=== PATIENT | female | born 1970 | race Caucasian/White ===

== ENCOUNTER 2019-11-20 19:29 | Inpatient (IN) | payer OTHER ==
[~2019-11-20] VITALS: Ht 170.2 cm; Wt 74.6 kg
--- NOTE | ~2019-11-20 | OR ---
[facility] [place] [facility] [address], [place] [address] Draft DATE OF OPERATION: SURGEON: Mk Vargas MD PREOPERATIVE DIAGNOSIS: Acute appendicitis. POSTOPERATIVE DIAGNOSIS: Acute perforated appendicitis. PROCEDURE: Laparoscopic appendectomy. ANESTHESIA: General endotracheal; Luis Armando Isabel CRNA and local 10 mL of 0.25% Marcaine with epinephrine. INDICATION: This 49-year-old white woman was seen late in the emergency room last night with several days of increased abdominal pain. She is noted to have an elevated white count. She had very vague complaints of pain in the right lower abdomen and right mid abdomen. Clinical examination was equivocal, Rovsing sign was negative. She had tenderness, but well above the McBurney's point. She was also noted to have electrolyte disturbance with a potassium of 2.9. A CT scan was performed under the direction and Dr. Hughes, the Emergency Room physician, which showed some suspicion of appendicitis and possible fecalith retention in the appendix. There was dilation and edema as well. She was fluid resuscitated, given broad-spectrum antibiotic meropenem and electrolytes have been corrected. Unfortunately, the patient refused to undergo COVID-19 testing preoperative or intraoperative. She was quite adamant about this and has vague reasons for it. On that basis, she is considered putatively positive for COVID-19 and is managed in a similar way as regards PPE and so on. She was admitted to undergo probable appendectomy, possible open procedure, and other indicated procedures as necessary. The risks of bleeding, infection, need for open procedure, failure of diagnosis, missed diagnosis, and other unforeseen complications was reviewed in detail with her. She understands and wished to proceed. FINDINGS: Indeed she did have appendicitis. The appendix was densely matted against the cecum and sidewall of the abdominal area and some small bowel loops and a fibrinous peel was PATIENT NAME: KECIA RO OPERATIVE REPORT DATE OF : 70 REPORT #: [id number] PHYSICIAN: MK VARGAS MD PCP: NO PRIMARY CARE PHYSICIAN REPORT IS CONFIDENTIAL AND NOT TO BE RELEASED WITHOUT AUTHORIZATION [facility] [place] [facility] [address], [place] [address] Draft noted. There was perforation and a gangrenous tip of the appendix, but no well-formed abscess. Complete appendectomy has been performed without problem. The liver and gallbladder appeared normal. Small bowel loops other than local inflammation were also normal as was the right colon. DESCRIPTION OF PROCEDURE: The patient was brought to the operating room, given a general endotracheal anesthetic. Preoperative antibiotic meropenem had been given. Sequential compression device stockings were used and heparin subcutaneously administered. The abdomen was prepared with a chlorhexidine solution and draped sterilely. An infraumbilical incision was made and using an open Cliff cannula technique, pneumoperitoneum was achieved to level of 14 mmHg of carbon dioxide gas. Intraabdominal inspection showed marked inflammatory change in the right lower abdomen including small bowel loops. There was no sign of free purulence. The liver and gallbladder appeared normal. An epigastric 12 mm port was placed and a camera placed to that site. Single hand manipulation of the cecum was undertaken showing the area of the inflamed appendix. The base of the appendix was well demonstrated, the tip not so much at that time. The right lower quadrant 5 mm port was then placed. Using two-hand dissection, the appendix was then freed from the fibrinous peel adjacent to the cecum and small bowel loops were revealing the entirety of the appendix, which was markedly inflamed and with a gangrenous perforated tip. The appendix was elevated and a window created between the appendix and the cecum using blunt electrocautery dissection. An Endo-HILARIO stapling device with a vascular load was used to transect the base of the appendix, flushed with the cecum. The camera was placed to the umbilical area and the Endo-HILARIO staple device passed through the epigastric port for better alignment with the mesentery of the appendix. A single load was used to transect the appendiceal mesentery. Good hemostasis was noted. The appendix was placed in an endobag and extracted through the infraumbilical port site, related photograph demonstrating the perforated appendix at the tip. Irrigation was undertaken in the right lower quadrant and the pelvis. Copious irrigation was undertaken until clear. There was no formed abscess, only a small amount of fibrinous peel. Once complete irrigation was undertaken, the trocars were removed under direct visualization showing no sign of bleeding. The infraumbilical fascial incision was reapproximated with interrupted 0 Vicryl suture and a running PDS suture, which was size 0 also. Irrigation was undertaken in the subcutaneous tissue of each trocar site. A 10 mL of 0.25% Marcaine with epinephrine injected locally. The skin was then closed with interrupted 3-0 Vicryl. Steri-Strips were applied. The patient is anticipated to be extubated in the operating room and a mandatory wait time for possibility of COVID virus undertaken (14 minutes on average). Sponge, needle, and counts were reported as correct x3. PATIENT NAME: KECIA RO OPERATIVE REPORT DATE OF : 70 REPORT #: [id number] PHYSICIAN: MK VARGAS MD PCP: NO PRIMARY CARE PHYSICIAN REPORT IS CONFIDENTIAL AND NOT TO BE RELEASED WITHOUT AUTHORIZATION [facility] [place] [facility] [address] [place], [place] [address] Draft MD CORTNEY Steen/KEEGAN /[id number] cc: Ponce Hughes MD Copies: PONCE HUGHES MD ~ PATIENT NAME: KECIA RO OPERATIVE REPORT DATE OF : 70 REPORT #: [id number] PHYSICIAN: MK VARGAS MD PCP: NO PRIMARY CARE PHYSICIAN REPORT IS CONFIDENTIAL AND NOT TO BE RELEASED WITHOUT AUTHORIZATION
--- OUTSIDE RECORDS SUMMARY | ~2019-11-20 | XMS | Encounter Summary ---
Demographics + + + | Address | [address] | | | [place] [address] | + + + | Home Phone | | + + + | Preferred Language | Unknown | + + + | Marital Status | Single | + + + | Holiness Affiliation | Unknown | + + + | Race | Unknown | + + + | Ethnic Group | Unknown | + + + Author + + + | Author | [facility] | | | and [place] | + + + | Organization | [facility] | | | and [place] | + + + | Address | Unknown | + + + | Phone | Unavailable | + + + Support + + +---------+ + | Name | Relationship | Address | Phone | + + +---------+ + | Alejandra Trotter | ECON | Unknown | | + + +---------+ + Care Team Providers + +------+ + | Care Train Examiner Name | Role | Phone | + +------+ + PCP | Unavailable | + +------+ + Encounter Details +--------+ + + + + | Date | Type | Department | Care Team | Description | +--------+ + + + + | 10/16/ | Hospital | [facility] | | | | 1992 | Encounter | MED CTR EMERGENCY | | | | | | [address] [address] | | | | | | [place] | | | | | | [address] | | | | | | [phone] | | | +--------+ + + + + Social History + +-------+ +--------+------+ | Tobacco Use | Types | Packs/Day | Years | Date | | | | | Used | | + +-------+ +--------+------+ | Never Assessed | | | | | + +-------+ +--------+------+ + + + | Sex Assigned at | Date Recorded | | | | + + + | Not on file | | + + + documented as of this encounter Plan of Treatment Not on filedocumented as of this encounter Visit Diagnoses Not on filedocumented in this encounter"
--- OUTSIDE RECORDS SUMMARY | ~2019-11-20 | XMS | Encounter Summary ---
Demographics + + + | Address | [address] | | | [place] [address] | + + + | Home Phone | | + + + | Preferred Language | Unknown | + + + | Marital Status | Single | + + + | Latter Day Affiliation | Unknown | + + + | Race | Unknown | + + + | Ethnic Group | Unknown | + + + Author + + + | Author | [facility] | | | and [place] | + + + | Organization | [facility] | | | and [...] Team Providers + +------+ + | Care Top Cutter Name | Role | Phone | + +------+ + PCP | Unavailable | + +------+ + Encounter Details +--------+ + + + + | Date | Type | Department | Care Team | Description | +--------+ + + + + | 06/25/ | Hospital | [facility] | | | | 2011 | Encounter | MED CTR XRAY [address] | | | | | [address] | | | | | | [place] [address] | | | | | | [phone] | | | +--------+ + + + [...] Not on filedocumented as of this encounter Procedures + +--------+ + + + | Procedure Name | Priori | Date/Time | Associated Diagnosis | Comments | | | ty | | | | + +--------+ + + + | CT CHEST W CONTRAST | | 06/25/2011 | | Results for this | | | | 2:26 PM | | procedure are in the | | | | PST | | results section. | + +--------+ + + + documented in this encounter Results CT Chest w Contrast (06/25/2011 2:26 PM PST) + + | Specimen | + + | | + + + + + | Narrative | Performed At | + + + | [facility] | [place] | | [address] [address] [facility] [place] | [place]SS[place] | | CT CHEST WITH CONTRAST: | DIAG IMG | | 06/25/2011 CLINICAL HISTORY: LUNG MASS SEEN ON CHEST X-RAY. | | | COMPARISON: 06/20/2011 TECHNIQUE: Imaging is performed | | | through the chest following the uneventful intravenous | | | administration of 75 mL of Isovue 370. FINDINGS: The | | | abnormality on the chest radiograph corresponds to a prominent right | | | sided pericardial fat pad with a small amount of overlying | | | atelectatic lung. The lung parenchyma itself is otherwise clear. | | | No consolidation. No distinct nodules. No pleural effusions. | | | No pneumothorax. There is no mediastinal or hilar | | | lymphadenopathy. No pericardial thickening. Heart and great | | | vessels are unremarkable. There is an anatomic variant of a four | | | vessel arch, with the left vertebral artery originating from the | | | aortic arch. A large dystrophic-like calcification is present in | | | the right breast. Limited imaging of the upper abdomen is | | | unremarkable. Schmorl's nodes are present at multiple levels in | | | the lower thoracic vertebral body. There are no compression | | | deformities. IMPRESSION: RADIOGRAPHIC ABNORMALITY CORRESPONDS | | | TO A LARGE PERICARDIAL FAT PAD WITH OVERLYING ATELECTASIS. | | | Dictated Date/Time: 06/25/2011 15:54 Transcribed Date/Time: | | | 06/25/2011 16:02 Pure Pak Machine Operator: CALISTA <Electronically Signed | | | by Riki Thomas MD> 06/25/11 1651 | | + + + + + | Procedure Note | + + | João, Rad Conversion - 06/17/2013 4:45 PM [facility] | | Diagnostic Imaging Department | | [address] [facility] | | | | | | | | CT CHEST WITH CONTRAST: 06/25/2011 | | | | CLINICAL HISTORY: LUNG MASS SEEN ON CHEST X-RAY. | | | | COMPARISON: 06/20/2011 | | | | TECHNIQUE: Imaging is performed through the chest following the uneventful | | intravenous administration of 75 mL of Isovue 370. | | | | FINDINGS: The abnormality on the chest radiograph corresponds to a prominent | | right sided pericardial fat pad with a small amount of overlying atelectatic | | lung. The lung parenchyma itself is otherwise clear. No consolidation. No | | distinct nodules. No pleural effusions. No pneumothorax. There is no | | mediastinal or hilar lymphadenopathy. No pericardial thickening. Heart and | | great vessels are unremarkable. There is an anatomic variant of a four vessel | | arch, with the left vertebral artery originating from the aortic arch. A large | | dystrophic-like calcification is present in the right breast. | | Limited imaging of the upper abdomen is unremarkable. | | | | Schmorl's nodes are present at multiple levels in the lower thoracic vertebral | | body. There are no compression deformities. | | | | IMPRESSION: RADIOGRAPHIC ABNORMALITY CORRESPONDS TO A LARGE PERICARDIAL FAT | | PAD WITH OVERLYING ATELECTASIS. | | | | Dictated Date/Time: 06/25/2011 15:54 | | Transcribed Date/Time: 06/25/2011 16:02 | | Pure Pak Machine Operator: | | <Electronically Signed by Riki Thomas MD> 06/25/11 1651 | + + + +---------+ + + | Performing | Address | City/State/Zipcode | Phone Number | | Organization | | | | + +---------+ + + | [place] | | | | | [place] | | | | + +---------+ + + documented in this encounter Visit Diagnoses Not on filedocumented in this encounter"
--- OUTSIDE RECORDS SUMMARY | ~2019-11-20 | XMS | Clinical Summary ---
Demographics + + + | Address | [address] | | | [place] [address] | + + + | Home Phone | | + + + | Preferred Language | Unknown | + + + | Marital Status | Single | + + + | Episcopal Affiliation | Unknown | + + + | Race | Unknown | + + + | Ethnic Group | Unknown | + + + Author + + + | Author | [facility] | | | and [place] | + + + | Organization | [facility] | | | [...] Team Providers + +------+ + | Care Patrol Sergeant Name | Role | Phone | + +------+ + | No, Physician | PCP | Unavailable | + +------+ + Allergies No Known Allergies Medications + + + +---------+------+------+-------+ | Medication | Sig | Dispensed | Refills | Star | End | Statu | | | | | | t | Date | s | | | | | | Date | | | + + + +---------+------+------+-------+ | nicotine | apply 1 patch daily | | 0 | 02/2 | | Activ | | (NICODERM) 21 mg/24 | for the next 5 weeks | | | 3/20 | | e | | hr | | | | 12 | | | + + + +---------+------+------+-------+ | nicotine | after completing the | | 0 | 02/2 | | Activ | | (NICODERM) 14 mg/24 | 21mg patch, apply | | | 3/20 | | e | | hr | 14mg patch daily for | | | 12 | | | | | 2 weeks | | | | | | + + + +---------+------+------+-------+ | nicotine | after completing | | 0 | 02/2 | | Activ | | (NICODERM) 7 mg/24 | 14mg patch, apply | | | 3/20 | | e | | hr | the 7mg patch daily | | | 12 | | | | | for 2 weeks | | | | | | + + + +---------+------+------+-------+ | naproxen sodium | Take 1 tablet by | 30 | 1 | 05/1 | | Activ | | (ANAPROX) 550 MG | mouth Twice daily | tablet | | 9/20 | | e | | tablet | as needed. | | | 14 | | | + + + +---------+------+------+-------+ Active Problems + + + | Problem | Noted Date | + + + | CHEST PAIN, ATYPICAL | 07/03/2011 | + + + | FATIGUE | 07/03/2011 | + + + | NICOTINE ADDICTION | 07/03/2011 | + + + Social History + +-------+ +--------+------+ | Tobacco Use | Types | Packs/Day | Years | Date | | | | | Used | | + +-------+ +--------+------+ | Current Every Day | | | | | | Smoker | | | | | + +-------+ +--------+------+ + +---+---+---+ | Smokeless Tobacco: | | | | | Never Used | | | | + +---+---+---+ + + +---------+ + | Alcohol Use | Drinks/Week | oz/Week | Comments | + + +---------+ + | Not Asked | | | | + + +---------+ + + + + | Sex Assigned at | Date Recorded | | | | + + + | Not on file | | + + + Last Filed Vital Signs + + + + + | Vital Sign | Reading | Time Taken | Comments | + + + + + | Blood Pressure | 104/68 | 06/14/2015 6:57 PM | | | | | PST | | + + + + + | Pulse | 80 | 06/14/2015 6:57 PM | | | | | PST | | + + + + + | Temperature | 37.8 C (100.1 F) | 06/14/2015 6:57 PM | | | | | PST | | + + + + + | Respiratory Rate | 16 | 06/14/2015 6:57 PM | | | | | PST | | + + + + + | Oxygen Saturation | 95% | 06/14/2015 6:57 PM | | | | | PST | | + + + + + | Inhaled Oxygen | - | - | | | Concentration | | | | + + + + + | Weight | 65.8 kg (145 lb 1.6 | 06/14/2015 6:57 PM | | | | oz) | PST | | + + + + + | Height | 162.6 cm (5' 4") | 06/14/2015 6:57 PM | | | | | PST | | + + + + + | Body Mass Index | 24.91 | 06/14/2015 6:57 PM | | | | | PST | | + + + + + Plan of Treatment + + + + + | Health Maintenance | Due Date | Last | Comments | | | | Done | | + + + + + | Vaccine: | | | | | Dtap/Tdap/Td (1 - | 0 | | | | Tdap) | | | | + + + + + | Cervical Cancer | | 06/11/19 | | | Screening (Pap) | 5 | 10 | | + + + + + | Breast Cancer | | 07/18/19 | | | Screening | 6 | 12, | | | | | 07/18/19 | | | | | 12 | | + + + + + | Vaccine: Influenza | | | | | (#1) | 0 | | | + + + + + Results Not on filefrom Last 3 Months Insurance + +--------+ +--------+ +---------+------+ | Payer | Benefi | Subscriber | Effect | Phone | Address | Type | | | t Plan | ID | alejandra | | | | | | / | | Dates | | | | | | Group | | | | | | + +--------+ +--------+ +---------+------+ | [facility] PHP | [id number] | 05/11/19 | [phone] | | PPO | | PLAN | PROV | | 16-Pre | 5 | | | | | EMPLOY | | [place] | | | | [place] | | | | | | + +--------+ +--------+ +---------+------+ + +--------+ +--------+ + + | Guarantor Name | Accoun | Relation to | Date | Phone | Billing Address | | | t Type | Patient | of | | | | | | | | | | + +--------+ +--------+ + + | Tabitha Jarrell | Person | Self [birth year] | [address] | | | al/Fam | | 1971 | [phone] | [place] | | | [place] | | | 5 (Home) | [id number] | | | | | | [phone] | | | | | | | 0 (Work) | | + +--------+ +--------+ + + | Tabitha Jarrell | 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
--- OUTSIDE RECORDS SUMMARY | ~2019-11-20 | XMS | Encounter Summary ---
Demographics + + + | Address | [address] | | | [place] [address] | + + + | Home Phone | | + + + | Preferred Language | Unknown | + + + | Marital Status | Single | + + + | Taoist Affiliation | Unknown | + + + | Race | Unknown | + + + | Ethnic Group | Unknown | + + + Author + + + | Author | [facility] | | | and [place] | + + + | Organization | [facility] | | | and [...] Team Providers + +------+ + | Care Patient Case Manager Name | Role | Phone | + +------+ + PCP | Unavailable | + +------+ + Encounter Details +--------+ + + + + | Date | Type | Department | Care Team | Description | +--------+ + + + + | 01/08/ | Hospital | [facility] | [place] | | | 2009 | Encounter | MED CTR LABORATORY | MD Haroon Need | | | | | [address] | updated address | | | | | [place] | | | | | | [address] | | | | | | [phone] | | | +--------+ + + + [...]
--- OUTSIDE RECORDS SUMMARY | ~2019-11-20 | XMS | Encounter Summary ---
Demographics + + + | Address | [address] | | | [place] [address] | + + + | Home Phone | | + + + | Preferred Language | Unknown | + + + | Marital Status | Single | + + + | Sikh Affiliation | Unknown | + + + | Race | Unknown | + + + | Ethnic Group | Unknown | + + + Author + + + | Author | [facility] | | | and [place] | + + + | Organization | [facility] | | | and [...] Team Providers + +------+ + | Care Scheduling Coordinator Name | Role | Phone | + +------+ + | No, Physician | PCP | Unavailable | + +------+ + Reason for Visit + + + | Reason | Comments | + + + | Fever | Rm 2/ x 2 days | + + + | Generalized Body | | | Aches | | + + + | Headache | | + + + | Diarrhea | x today | + + + Encounter Details +--------+---------+ + + + | Date | Type | Department | Care Team | Description | +--------+---------+ + + + | 06/14/ | Office | [facility] | Maria Isabel Katz | Fever, unspecified | | 2015 | Visit | CARE [address] | Narciso Rivas MD | fever cause (Primary | | | | [place] | [address] | Dx); Body aches | | | | [address] | [place] | | | | | [phone] | [id number] | | | | | | | | +--------+---------+ + + + Social History + +-------+ [...] + + documented as of this encounter Last Filed Vital Signs + + + [...] | | + + + + + documented in this encounter Patient Instructions Patient Instructions Maria Isabel Katz Jr., MD - 06/14/2015 7:36 PM PSTNo work for t he next 3 days Bring in stool sample for culture and lactoferrin if diarrhea persists recheck if new symptoms develop documented in this encounter Progress Notes Maria Isabel Katz Jr., MD - 06/14/2015 7:06 PM PSTReceilo Jarrell presents with a 2 day history of fever, headache, body aches along with minimal nasal drainage and slight coug h. She did not have a flu vaccine this year. She had two episodes of diarrhea today withou t blood or mucus. She's had no abdominal pain or vomiting. She has not had dysuria. She h as not had a rash. Had GI upset all last week without vomiting or diarrhea. No recent anti biotics and no history of C. difficile. No recent travel or exposure. Exam: No distress, non-toxic in appearance BP 104/68 mmHg | Pulse 80 | Temp(Src) 37.8 C (100.1 F) (Temporal) | Resp 16 | Ht 1.626 m (5' 4") | Wt 65.817 kg (145 lb 1.6 oz) | BMI 24.89 kg/m2 | SpO2 95% Nose: clear, slight sinus tenderness to percussion Ears: TM's not inflamed Throat: slight erythema, no exudate Neck: Supple, no stridor, no adenopathy Chest: No rales, no rhonchi, no wheezes, good breath sounds bilaterally, no respiratory di stress Heart: Regular rhythm, no murmur, no gallop, no rub Abdomen: Soft, bowel sounds normal, no hepatosplenomegaly, no localized tenderness Flu test: negative Diagnosis: Fever of uncertain etiology Plan: Stool culture and lactoferrin if diarrhea continues, recheck if new symptoms develop, no work for 3 days Follow-up with your doctor or the clinic if not improving in 5 days. Take medication as directed Increase fluid intake Recheck sooner, in the clinic, with your doctor or in the ER, if your symptoms worsen or ne w problems develop 8: 04 PM PSTdocumented in this encounter Plan of Treatment + + +--------+ + + | Name | Type | Priori | Associated Diagnoses | Order Schedule | | | | ty | | | + + +--------+ + + | Culture, Stool | Microbiolog | Routin | Fever, Unspecified | Ordered: 06/14/2015 | | | y | e | Fever Cause | | + + +--------+ + + | Lactoferrin, Fecal, | Microbiolog | Routin | Fever, Unspecified | Ordered: 06/14/2015 | | Qual | y | e | Fever Cause | | + + +--------+ + + documented as of this encounter Procedures + +--------+ + + + | Procedure Name | Priori | Date/Time | Associated Diagnosis | Comments | | | ty | | | | + +--------+ + + + | POCT INFLUENZA A/B | Routin | 06/14/2015 | Fever, unspecified | Results for this | | NAAT | e | 7:27 PM | fever cause Body | procedure are in the | | | | PST | aches | results section. | + +--------+ + + + documented in this encounter Results POCT Influenza A/B NAAT (06/14/2015 7:27 PM PST) + + + + + + | Component | Value | Ref Range | Performed | Pathologist | | | | | At | Signature | + + + + + + | Influenza A | Negative | Negative | | | | NAAT, POC | | | | | + + + + + + | Influenza B | Negative | Negative | | | | NAAT, POC | | | | | + + + + + + | Internal QC | Acceptable | | | | + + + + + + + + | Specimen | + + | | + + documented in this encounter Visit Diagnoses + + | Diagnosis | + + | Fever, unspecified fever cause - Primary | + + | Body aches Generalized pain | + + documented in this encounter
--- OUTSIDE RECORDS SUMMARY | ~2019-11-20 | XMS | Encounter Summary ---
Demographics + + + | Address | [address] | | | [place] [address] | + + + | Home Phone | | + + + | Preferred Language | Unknown | + + + | Marital Status | Single | + + + | Orthodoxy Affiliation | Unknown | + + + | Race | Unknown | + + + | Ethnic Group | Unknown | + + + Author + + + | Author | [facility] | | | and [place] | + + + | Organization | [facility] | | | and [place] | + [...] Team Providers + +------+ + | Care Volumetric Weigher Name | Role | Phone | + +------+ + PCP | Unavailable | + +------+ + Encounter Details +--------+ + + + + | Date | Type | Department | Care Team | Description | +--------+ + + + + | 10/29/ | [facility] | [facility] | Jayda, | | | 2008 | Encounter | MED CTR EMERGENCY | Haroon [place] MD [address] | | | | | CENTER [address] | [facility] | | | | | [place] | [place] [address] | | | | | [address] | [phone] | | | | | [phone] | | | +--------+ + + + [...]
--- OUTSIDE RECORDS SUMMARY | ~2019-11-20 | XMS | Encounter Summary ---
Demographics + + + | Address | [address] | | | [place] [address] | + + + | Home Phone | | + + + | Preferred Language | Unknown | + + + | Marital Status | Single | + + + | Muslim Affiliation | Unknown | + + + | Race | Unknown | + + + | Ethnic Group | Unknown | + + + Author + + + | Author | [facility] | | | and [place] | + + + | Organization | [facility] | | | and [...] Team Providers + +------+ + | Care Continuing Education Director Name | Role | Phone | + +------+ + | Agusto Curtis DO | PCP | | + +------+ + Encounter Details +--------+ + + + + | Date | Type | Department | Care Team | Description | +--------+ + + + + | 01/21/ | Abstract | [facility] | [facility] | | | 2011 | | Conversion Location | SR | | | | | [address] | | | | | | [place], [place] | | | | | | [address] | | | | | | [phone] | | | +--------+ + + + [...] + + + | Blood Pressure | 104/76 | 07/03/2011 12:00 AM | | | | | PST | | + + + + + | Pulse | - | - | | + + + + + | Temperature | - | - | | + + + + + | Respiratory Rate | - | - | | + + + + + | Oxygen Saturation | - | - | | + + + + + | Inhaled Oxygen | - | - | | | Concentration | | | | + + + + + | Weight | 74.4 kg (164 lb) | 07/03/2011 12:00 AM | | | | | PST | | + + + + + | Height | 162.6 cm (5' 4") | 07/03/2011 12:00 AM | | | | | PST | | + + + + + | Body Mass Index | 28.15 | 07/03/2011 12:00 AM | | | | | PST | | + + + + + documented in this encounter Plan of Treatment Not on filedocumented as of this encounter Procedures + +--------+ + + + | Procedure Name | Priori | Date/Time | Associated Diagnosis | Comments | | | ty | | | | + +--------+ + + + | GAIL SCREENING | Routin | 07/18/2011 | | Results for this | | BILATERAL | e | 12:00 AM | | procedure are in the | | | | PST | | results section. | + +--------+ + + + | PAP SMEAR | Routin | 06/11/2009 | | Results for this | | | e | 12:00 AM | | procedure are in the | | | | PST | | results section. | + +--------+ + + + documented in this encounter Results GAIL Screening Bilateral (07/18/2011 12:00 AM PST) + + | Specimen | + + | | + + + + + | Narrative | Performed At | + + + | | | + + + Pap Smear (06/11/2009 12:00 AM PST) + + | Specimen | + + | | + + + + + | Narrative | Performed At | + + + | | | + + + documented in this encounter Visit Diagnoses Not on filedocumented in this encounter
--- OUTSIDE RECORDS SUMMARY | ~2019-11-20 | XMS | Encounter Summary ---
Demographics + + + | Address | [address] | | | [place] [address] | + + + | Home Phone | | + + + | Preferred Language | Unknown | + + + | Marital Status | Single | + + + | Scientology Affiliation | Unknown | + + + | Race | Unknown | + + + | Ethnic Group | Unknown | + + + Author + + + | Author | [facility] | | | and [place] | + + + | Organization | [facility] | | | and [...] Team Providers + +------+ + | Care Terrazzo Worker Apprentice Name | Role | Phone | + +------+ + | Agusto Curtis DO | PCP | | + +------+ + Encounter Details +--------+ + + + + | Date | Type | Department | Care Team | Description | +--------+ + + + + | 07/17/ | Hospital | [facility] | | | | 2011 | Encounter | MED CTR XRAY [address] | | | | | | [address] [place] | | | | | | [place] [address] | | | | | | [phone] | | | +--------+ + + + [...] + + documented as of this encounter Medications at Time of Discharge + + + +---------+ + + | Medication | Sig | Dispensed | Refills | Start | End Date | | | | | | Date | | + + + +---------+ + + | nicotine | after completing the | | 0 | 07/03/19 | | | (NICODERM) 14 mg/24 | 21mg patch, apply | | | 12 | | | hr | 14mg patch daily for | | | | | | | 2 weeks | | | | | + + + +---------+ + + | nicotine | apply 1 patch daily | | 0 | 20 | | | (NICODERM) 21 mg/24 | for the next 5 weeks | | | 12 | | | hr | | | | | | + + + +---------+ + + | nicotine | after completing | | 0 | 07/03/20 | | | (NICODERM) 7 mg/24 | 14mg patch, apply | | | 12 | | | hr | the 7mg patch daily | | | | | | | for 2 weeks | | | | | + + + +---------+ + + documented as of this encounter Plan of Treatment Not on filedocumented as of this encounter Procedures + +--------+ + + + | Procedure Name | Priori | Date/Time | Associated Diagnosis | Comments | | | ty | | | | + +--------+ + + + | GAIL DIGITAL | | 07/18/2011 | | Results for this | | SCREENING BILATERAL | | 9:31 AM | | procedure are in the | | | | PST | | results section. | + +--------+ + + + documented in this encounter Results GAIL Digital Screening Bilateral (07/18/2011 9:31 AM PST) + + | Specimen | + + | | + + + + + | Narrative | Performed At | + + + | [facility] Diagnostic Imaging Department | [facility] | | [address] [facility] | [facility] | | MAMMOGRAM BILATERAL SCREENING, | DIAG IMG | | 07/18/2011 CLINICAL HISTORY: SCREENING. COMPARISON: | | | None. This is baseline. TECHNIQUE: Bilateral digital CC | | | and MLO view. CAD was utilized. FINDINGS: Heterogeneously | | | dense breast parenchyma bilaterally. The pattern is relatively | | | symmetric. No distinct masses. No architectural distortion. | | | Dystrophic and lucent centered calcifications ar e present in the | | | right breast. There are a few non-clustered small round | | | calcifications in the left breast. IMPRESSION: 1. BIRADS | | | CATEGORY 2: BENIGN FINDINGS. RECOMMENDATION: CONTINUED | | | SCREENING PER ACS GUIDELINES AND MONTHLY SELF-BREAST EXAM. | | | Dictated Date/Time: 07/18/2011 15:36 Transcribed Date/Time: | | | 07/18/2011 16:22 Starch Mangle Tender: <Electronically Signed | | | by Riki Thomas MD> 07/20/111919 | | + + + + + | Procedure Note | + + | João, Rad Conversion - 06/17/2013 4:[address] [facility] | | Diagnostic Imaging Department [address] [place] [address] | | MAMMOGRAM BILATERAL SCREENING, 07/18/2011 CLINICAL | | HISTORY: SCREENING. COMPARISON: None. This is baseline. TECHNIQUE: Bilateral | | digital CC and MLO view. CAD was utilized. FINDINGS: Heterogeneously dense breast | | parenchyma bilaterally. The pattern is relatively symmetric. No distinct masses. No | | architectural distortion. Dystrophic and lucent centered calcifications are present in | | the right breast. There are a few non-clustered small round calcifications in the left | | breast. IMPRESSION:1. BIRADS CATEGORY 2: BENIGN FINDINGS. RECOMMENDATION: CONTINUED | | SCREENING PER ACS GUIDELINES AND MONTHLY SELF-BREAST EXAM. Dictated Date/Time: | | 07/18/2011 15:36Transcribed Date/Time: 07/18/2011 16:22Transcriptionist: | | MRCHINA<Electronically Signed by Riki [place] MD> 07/20/11 1920 | |TECHNIQUE: Bilateral digital CC and MLO view. CAD was utilized. | | | |FINDINGS: Heterogeneously dense breast parenchyma bilaterally. The pattern is relatively symmetric. | | No distinct masses. No architectural distortion. Dystrophic and lucent centered calcifi cations ar | |e present in the right breast. There are a few non-clustered small round calcifications in the left | |breast. | | | |IMPRESSION: | |1. BIRADS CATEGORY 2: BENIGN FINDINGS. | | | |RECOMMENDATION: CONTINUED SCREENING PER ACS GUIDELINES AND MONTHLY SELF-BREAST EXAM. | | | |Dictated Date/Time: 07/18/2011 15:36 | |Transcribed Date/Time: 07/18/2011 16:22 | |Starch Mangle Tender: | |<Electronically Signed by Riki [place] MD> 07/20/111919 | + + + +---------+ + + | Performing | Address | City/State/Zipcode | Phone Number | | Organization | | | | + +---------+ + + | [place] | | | | | [facility] | | | | + +---------+ + + documented in this encounter Visit Diagnoses Not on filedocumented in this encounter"
--- OUTSIDE RECORDS SUMMARY | ~2019-11-20 | XMS | Encounter Summary ---
Demographics + + + | Address | [address] | | | [place] [address] | + + + | Home Phone | | + + + | Preferred Language | Unknown | + + + | Marital Status | Single | + + + | Christian Affiliation | Unknown | + + + | Race | Unknown | + + + | Ethnic Group | Unknown | + + + Author + + + | Author | [facility] | | | and [place] | + + + | Organization | [facility] | | | [...] Team Providers + +------+ + | Care Wall To Wall Carpet Installer Name | Role | Phone | + +------+ + PCP | Unavailable | + +------+ + Encounter Details +--------+ + + + + | Date | Type | Department | Care Team | Description | +--------+ + + + + | 06/20/ | Hospital | [facility] | | | | 2011 | Encounter | MED CTR XRAY [address] | | | | | | [address] | | | | | | [place] [address] | | | | | | [phone] | | | +--------+ + + + [...] | + +--------+ + + + | RULE OUT MYOCARDIAL | Routin | 06/20/2011 | | Results for this | | INFARCTION | e | 1:37 PM | | procedure are in the | | | | PST | | results section. | + +--------+ + + + | XR CHEST PA AND | | 06/20/2011 | | Results for this | | LATERAL | | 1:24 PM | | procedure are in the | | | | PST | | results section. | + +--------+ + + + documented in this encounter Results Rule Out Myocardial (06/20/2011 1:37 PM PST) + + + + + + | Component | Value | Ref Range | Performed | Pathologist | | | | | At | Signature | + + + + + + | CK TOTAL | 93 | 22 - 269 IU/L | [facility] | | | | | | [facility] | | | | | | MEDICAL | | | | | | CENTER - | | | | | | LABORATORY | | + + + + + + | CK-MB | 1.3Comment: Testing | 0.6 - 6.3 ng/mL | [facility] | | | | performed on the [facility] | | [facility] | | | | [facility] | | MEDICAL | | | | Analyzer. | | CENTER - | | | | | | LABORATORY | | + + + + + + | Troponin I | 0.01Comment: Reference | <0.06 ng/mL | [facility] | | | | Ranges: | | [facility] | | | | 0.00-0.06 = NORMAL | | MEDICAL | | | | >0.06 | | CENTER - | | | | = SUSPICIOUS FOR | | LABORATORY | | | | MYOCARDIAL DAMAGE | | | | | | NOTE: Values greater | | | | | | than 0.50 ng/mL have | | | | | | been shown to be | | | | | | strongly associated with | | | | | | acute myocardial | | | | | | infarction. The | | | | | | [employer] of | | | | | | Cardiology (ACC) | | | | | | recommends a decision | | | | | | limit of 0.06 ng/mL for | | | | | | this assay. Results | | | | | | greater than 0.06 can | | | | | | reflect a pre-infarct | | | | | | acute coronary | | | | | | syndrome, but can also | | | | | | reflect myocardial | | | | | | necrosis or injury | | | | | | that is not due to | | | | | | coronary artery | | | | | | disease. Some of these | | | | | | causes are sepsis, | | | | | | hypocolemia, atrial | | | | | | fibrillation, heart | | | | | | failure, pulmonary | | | | | | embolism, myocarditis, | | | | | | myocardial contusion, | | | | | | and renal failure. The | | | | | | diagnosis of myocardial | | | | | | infarction should be | | | | | | based on a combination | | | | | | of the patient's | | | | | | clinical presentation | | | | | | and the clinical | | | | | | laboratory test results | | | | | | (especially serial | | | | | | troponin levels). | | | | + + + + + + + + | Specimen | + + | | + + + + + + + | Performing | Address | [facility] | Phone Number | | Organization | | | | + + + + + | [facility] | [address] | [place], [place] | [phone] | | [facility] | | [phone] | | | - LABORATORY | | | | + + + + + | [facility] | [address] | [place], [place] | | | [facility] | | [id number] | | | - LABORATORY | | | | + + + + + XR Chest PA and Lateral (06/20/2011 1:24 PM PST) + + | Specimen | + + | | + + + + + | Narrative | Performed At | + + + | [facility] Diagnostic Imaging Department | [facility] | | [address] [facility] | [facility] | | CHEST, TWO VIEWS: 06/20/2011 | DIAG IMG | | CLINICAL HISTORY: CHEST PAIN. FINDINGS: There is a low | | | density convex soft tissue abnormality in the anteromedial right | | | lung base overlying the medial cardiophrenic angle. This most | | | likely represents prominent pleuropericardial fat or a Morgagni | | | hernia. Heart size is normal. There is no chamber enlargement. | | | Pulmonary vessels are normal. Lungs are clear. IMPRESSION: | | | 1. NEGATIVE FOR ACUTE CARDIOPULMONARY DISEASE. 2. CONTOUR | | | ABNORMALITY WITH SOFT TISSUE MASS AT THE INFERIOR MEDIAL RIGHT | | | CARDIOPHRENIC ANGLE. THIS MOST LIKELY REPRESENTS A FAT CONTAINING | | | LESION SUCH MORGAGNI HERNIA OR PROMINENT PLEUROPERICARDIAL FAT | | | DEPOSIT. THIS COULD BE CONFIRMED WITH A CONTRAST ENHANCED CT, IF | | | CLINICALLY INDICATED. Dictated Date/Time: 06/20/2011 15:58 | | | Transcribed Date/Time: 06/20/2011 16:35 Corporate Strategy Analyst: CALISTA | | | <Electronically Signed by Kd Melendez MD> 06/21/11 1311 | | + + + + + | Procedure Note | + + | João, Rad Conversion - 06/17/2013 4:43 PM [facility] | | Diagnostic Imaging Department | | [address] [facility] | | | | | | | | CHEST, TWO VIEWS: 06/20/2011 | | | | CLINICAL HISTORY: CHEST PAIN. | | | | FINDINGS: There is a low density convex soft tissue abnormality in the | | anteromedial right lung base overlying the medial cardiophrenic angle. This | | most likely represents prominent pleuropericardial fat or a Morgagni hernia. | | Heart size is normal. There is no chamber enlargement. Pulmonary vessels are | | normal. Lungs are clear. | | | | IMPRESSION: | | 1. NEGATIVE FOR ACUTE CARDIOPULMONARY DISEASE. | | | | 2. CONTOUR ABNORMALITY WITH SOFT TISSUE MASS AT THE INFERIOR MEDIAL RIGHT | | CARDIOPHRENIC ANGLE. THIS MOST LIKELY REPRESENTS A FAT CONTAINING LESION SUCH | | MORGAGNI HERNIA OR PROMINENT PLEUROPERICARDIAL FAT DEPOSIT. THIS COULD BE | | CONFIRMED WITH A CONTRAST ENHANCED CT, IF CLINICALLY INDICATED. | | | | Dictated Date/Time: 06/20/2011 15:58 | | Transcribed Date/Time: 06/20/2011 16:35 | | Corporate Strategy Analyst: | | <Electronically Signed by Kd Melendez MD> 06/21/11 1311 | + + + +---------+ + + [...]
--- OUTSIDE RECORDS SUMMARY | ~2019-11-20 | XMS | Encounter Summary ---
Demographics + + + | Address | [address] | | | [place] [address] | + + + | Home Phone | | + + + | Preferred Language | Unknown | + + + | Marital Status | Single | + + + | Oriental Orthodox Affiliation | Unknown | + + + | Race | Unknown | + + + | Ethnic Group | Unknown | + + + Author + + + | Author | [facility] | | | and [place] | + + + | Organization | [facility] | | | [...] Team Providers + +------+ + | Care Platinum And Palladium Kettle Tender Name | Role | Phone | + +------+ + | No, Physician | PCP | Unavailable | + +------+ + Reason for Visit + + + | Reason | Comments | + + + | Back Pain | Neck pain. OM 09/21/13. RM3 | + + + Encounter Details +--------+---------+ + + + | Date | Type | Department | Care Team | Description | +--------+---------+ + + + | 09/26/ | Office | [facility] | Cyrus Oswald MD | Thoracic back pain | | 2013 | Visit | CARE [address] | [address] | (Primary Dx) | | | | [place] | [place] [address] | | | | | [address] | [phone] | | | | | [phone] | | | +--------+---------+ + + + [...] + + + | Blood Pressure | 120/60 | 09/26/2013 12:55 PM | | | | | PDT | | + + + + + | Pulse | 94 | 09/26/2013 12:55 PM | | | | | PDT | | + + + + + | Temperature | 37.4 C (99.3 F) | 09/26/2013 12:55 PM | | | | | PDT | | + + + + + | Respiratory Rate | 16 | 09/26/2013 12:55 PM | | | | | PDT | | + + + + + | Oxygen Saturation | 98% | 09/26/2013 12:55 PM | | | | | PDT | | + + + + + | Inhaled Oxygen | - | - | | | Concentration | | | | + + + + + | Weight | 79.8 kg (176 lb) | 09/26/2013 12:55 PM | | | | | PDT | | + + + + + | Height | 162.6 cm (5' 4") | 09/26/2013 12:55 PM | | | | | PDT | | + + + + + | Body Mass Index | 30.21 | 09/26/2013 12:55 PM | | | | | PDT | | + + + + + documented in this encounter Progress Notes Cyrus Oswald MD - 09/26/2013 1:05 PM PDT Subjective: Chief Complaint: Back Pain Tabitha is a 42 y.o. female who comes in for above concern. No other complaints. Pain came on at work. Lifted a box above her head and lifted it down. Several hours afterwa chaitanya developed pain in her neck when she lifts her arms and/or pushes a heavy door. Pain bett er now. Patient's medications, allergies, past medical, surgical, social and family histories were reviewed and updated as appropriate. Objective: BP 120/60 | Pulse 94 | Temp 37.4 C (99.3 F) (Temporal) | Resp 16 | Ht 1.626 m (5' 4") | Wt 79.833 kg (176 lb) | BMI 30.20 kg/m2 | SpO2 98% | LMP 09/23/2013 | ? No General Appearance: Alert, cooperative, no distress, appears stated age Neck FROM [place] FROM Motor 5/5 Reflexes intact Mild point tenderness over mid thoracic spine, no muscular tenderness found. FROM of spine. Assessment and Plans: Thoracic back strain Released for work Naproxen, ice PT referral if recurrent. documented in this enc ounter Miscellaneous Notes Plan of Care - [facility] - 09/26/2013 12:00 AM PDT lan of Care - [facility] - 09/26/2013 12:00 AM PDTElect ronically signed by Kirk Santoro at 09/29/2013 4:24 PM PDTdocumented in this encounter Plan of Treatment Not on filedocumented as of this encounter Visit Diagnoses + + | Diagnosis | + + | Thoracic back pain - Primary Pain in thoracic spine | + + documented in this encounter
--- OUTSIDE RECORDS SUMMARY | ~2019-11-20 | XMS | Encounter Summary ---
Demographics + + + | Address | [address] | | | [place] [address] | + + + | Home Phone | | + + + | Preferred Language | Unknown | + + + | Marital Status | Single | + + + | Catholic Affiliation | Unknown | + + + | Race | Unknown | + + + | Ethnic Group | Unknown | + + + Author + + + | Author | [facility] | | | and [place] | + + + | Organization | [facility] | | [...] Team Providers + +------+ + | Care Sleeve Setter Lockstitch Name | Role | Phone | + +------+ + | No, Physician | PCP | Unavailable | + +------+ + Reason for Visit +--------+ + | Reason | Comments | +--------+ + | Other | Form Fee | +--------+ + Encounter Details +--------+---------+ + + + | Date | Type | Department | Care Team | Description | +--------+---------+ + + + | 11/09/ | Office | [facility] | [facility] | Thoracic sprain, | | 2014 | Visit | [facility] | MD Haroon Need | subsequent encounter | | | | [place] [address] | updated address | (Primary Dx); Place | | | | [address] [place] | | of occurrence, | | | | [place], [place] | | industrial places | | | | [address] | | and premises | | | | [phone] | | | +--------+---------+ + + + [...] + + documented as of this encounter Progress Arabella Hoffmann RN - 11/15/2013 9:21 AM PDTForm fee Physician-signed document can be found in scanning. documented in this encounter Plan of Treatment Not on filedocumented as of this encounter Visit Diagnoses + + | Diagnosis | + + | Thoracic sprain, subsequent encounter - Primary | + + | Place of occurrence, industrial places and premises | + + documented in this encounter"
--- OUTSIDE RECORDS SUMMARY | ~2019-11-20 | XMS | Encounter Summary ---
Demographics + + + | Address | [address] | | | [place] [address] | + + + | Home Phone | | + + + | Preferred Language | Unknown | + + + | Marital Status | Single | + + + | Protestant Affiliation | Unknown | + + + | Race | Unknown | + + + | Ethnic Group | Unknown | + + + Author + + + | Author | [facility] | | | and [place] | + + + | Organization | [facility] | | | [...] Team Providers + +------+ + | Care Director Of Spa And Guest Experience Name | Role | Phone | + +------+ + PCP | Unavailable | + +------+ + Encounter Details +--------+ + + + + | Date | Type | Department | Care Team | Description | +--------+ + + + + | 02/07/ | Hospital | [facility] | Nick Barraza, | | | 1991 - | Encounter | [facility] | [address] | | | | [address] | [address] | | | 02/09/ | | [place], | [place] [address] | | | 1991 | | [place] [address] | [phone] | | | | | [phone] | | | +--------+ + + + [...]
--- OUTSIDE RECORDS SUMMARY | ~2019-11-20 | XMS | Encounter Summary ---
Demographics + + + | Address | [address] | | | [place] [address] | + + + | Home Phone | | + + + | Preferred Language | Unknown | + + + | Marital Status | Single | + + + | Advent Affiliation | Unknown | + + + | Race | Unknown | + + + | Ethnic Group | Unknown | + + + Author + + + | Author | [facility] | | | and [place] | + + + | Organization | [facility] | | [...] Team Providers + +------+ + | Care Printed Circuit Board Panels Plater Name | Role | Phone | + +------+ + PCP | Unavailable | + +------+ + Encounter Details +--------+ + + + + | Date | Type | Department | Care Team | Description | +--------+ + + + + | 01/28/ | Hospital | [facility] | Nick Barraza, | | | 1991 | Encounter | [facility] | [address] | | | | | [facility] [address] | [address] | | | | | [place], [place] [address] | | | | | [place] [address] | [phone] | | | | | [phone] | | | +--------+ + + + [...]
--- NOTE | 2019-11-21 00:30 | NUR ---
VERIFIED POTASSIUM INFUSION ORDER WITH MD, NEW ORDERS REPEATED BACK TO VERIFY. EMAR UPDATED.
--- NOTE | 2019-11-21 00:31 | NUR ---
pt ARRIVES TO MED SURG FLOOR WITH PLANE RUNNER ESCORT. RATES PAIN 4/10 AT REST, INCREASES WITH MOVEMENT. PRN MEDICATION ADMINISTERED BY EDUARDO CORRAL. ORIENTATION TO ROOM PROVIDED. pt REFUSING COVID TEST DURING POTENTIAL SURGERY ALSO. EDUCATED pt, CONTINUES TO DECLINE. PRIMARY RN IN ROOM.
--- NOTE | 2019-11-21 00:36 | NUR ---
ASSESSMENT COMPLETED. ABD FIRM, TENDER, MILDLY DISTENDED. LUNGS CLEAR, BOWEL TONES ACTIVE. NO EDEMA NOTED. SKIN INTACT, WARM AND DRY. PAIN 4/10, PRN PAIN MED PROVIDED. NO OTHER NEEDS AT THIS TIME.
--- NOTE | 2019-11-21 01:30 | NUR ---
BAG 1 OF 4 10MEQ POTASSIUM INFUSING, 10MG LIDOCAINE ADDED PER POLCIY. VERIFIED WITH SECOND RN LUCY. IV SITE WNL, PT DENIES PAIN WITH INFUSION. INSTRUCTED TO CALL RN IF PAIN OR BURNING OCCUR, PT VERBALIZED UNDERSTANDING. THIS RN TO RESUME CARE FOR PT, REPORT RECEIVED FROM RAIL DIRECTOR BAILEY. PT DENIES NEEDS, CALL LIGHT IN REACH.
--- NOTE | 2019-11-21 01:55 | NUR ---
CALL LIGHT ANSWERED. pt C/O PAIN AT IV SITE, ASSESSED, INFUSING WNL ORDERED. WARM BLANKET PROVIDED, IVF INFUSING CONCURRENTLY WITH POTASSIUM RIDER. CALL LIGHT IN REACH.
--- NOTE | 2019-11-21 02:01 | NUR ---
IN ROOM TO ASSESS IV SITE, PER EDUARDO AYALA PT REPORTING PAIN WITH POTASSIUM INFUSION. INFUSION RECENTLY SWITCHED TO CONCURRENT, PT REPORTS IT'S "FEELING BETTER". SITE WNL, NO REDDNESS OR SWELLING NOTED. WILL MONITOR. CALL LIGHT IN REACH.
--- NOTE | 2019-11-21 02:43 | NUR ---
PT RESTING QUIETLY IN BED, EYES CLOSED. NO OUTWARDS SIGNS OF PAIN OR DISTRESS. IV SITE WNL, 2 OF 4 10MEQ POTASSIUM INFUSING. 10MG LIDOCAINE ADDED, VERIFIED WITH SECOND RN LUCY. CALL LIGHT IN REACH.
--- NOTE | 2019-11-21 03:40 | NUR ---
3 OF 4 10MEQ POTASSIUM INFUSING, SITE REMAINS UNCHANGED. 10MG LIDOCAINE ADDED, VERIFIED WITH SECOND RN ALEJANDRO. PT IS RESTING IN BED WITH EYES CLOSED, RR EVEN AND UNLABORED, NO DISTRESS OR SIGNS OF PAIN NOTED. CALL LIGHT IN REACH.
--- NOTE | 2019-11-21 04:30 | NUR ---
4 OF 4 BAG 10MEQ POTASSIUM INFUSING, 10MG LIDOCAINE ADDED. VERIFED WITH SECOND RN ALEJANDRO. PT REMAINS RESTING IN BED WITH EYES CLOSED. IV SITE WNL, NO DISTRESS OR SIGNS OF PAIN NOTED. CALL LIGHT IN REACH.
--- NOTE | 2019-11-21 05:40 | NUR ---
VS AND I&O'S COMPLETE PER WHEAT WASHER GILL. ASSESSMENT COMPLETE, NO NEW CHANGES OR CONCERNS. PT DENIES PAIN AND NAUSEA. IV FLUIDS INFUSING, SITE REMAINS WNL. WOODWORKING SHOP LABORER CALLED FOR IV ABX. CALL LIGHT IN REACH.
--- NOTE | 2019-11-21 06:25 | NUR ---
BOX ESTIMATOR WITH IV ABX. IV ABX INFUSING, SITE WNL. PT RESTING IN BED WITH EYES CLOSED. NO DISTRESS NOTED, DENIES FURTHER NEEDS. CALL LIGHT IN REACH.
--- NOTE | 2019-11-21 08:30 | NUR ---
PATIENT ASLEEP IN BED. CALL LIGHT IN REACH.
--- NOTE | 2019-11-21 08:32 | NUR ---
PT IS RESTING COMFORTABLE, WANTS TO SLEEP A BIT LONGER, CALL LIGHT IN EASY REACH.
--- NOTE | 2019-11-21 08:53 | NUR ---
AWAKE, SBA INTO BATHROOM TO VOID, DENIES ANUASEA, STATES ONLY PAIN IS HER BACK FROM HOSPITAL BED, BACK TO BED, ABX INFUSING, CALL LIGHT IN EASY REACH, DENIES ANY NEEDS.
--- NOTE | 2019-11-21 09:40 | NUR ---
DR VARGAS IN AND CONSENT SIGNED BY PT.
--- NOTE | 2019-11-21 11:09 | NUR ---
SPOKE WITH PHARMACY REGARDING 3HR INFUSION MERRIUM, STATED OK TO RUN OVER 30MIN PRIOR SURGERY THEN THEY WILL RETIME.
--- NOTE | 2019-11-21 14:17 | NUR ---
11/21/19 1417 Dorene Cano 1355 PT ARRIVED IN PACU SLEEPY WITH NO C/O'S. 1405 OXYGEN REMOVED. SATS DROPPED TO 88% ON RA. ENCOURAGED COUGH, DEEP BREATHING. SATS UP TO 90%, THEN DROP WHEN NOT STIMULATED. O2 AT 4L VIA NC PLACED. SATS 93% ON RA. 1415 NO C/O'S PAIN. RESTING.
--- NOTE | 2019-11-21 14:24 | NUR ---
PT TAKEN TO SURGERY. WILL FOLLOW UPON RETURN FROM OR
--- NOTE | 2019-11-21 14:42 | NUR ---
RETURNED TO ROOM FROM RECOVERY, PT IS ALERT, ASKING FOR PHONE TO TALK TO FAMILY, DENIES NAUSEA, OR PAIN, DENIES NEED TO VOID YET, ORDERS NOTED, CALL LIGHT IN EASY REACH.
--- NOTE | 2019-11-21 16:00 | NUR ---
ATE 90% OF DINNER TRAY ORDERED, TAKING PO FLUIDS WELL, UP TO BATHROOM TO VOID. DR VARGAS HERE TO SEE PT.
[2019-11-21] MEDS ORDERED: CIPROFLOXACIN500 MG PO (16:24)
[2019-11-21] MEDS ORDERED: METRONIDAZOLE250 MG PO (16:24)
[2019-11-21] MEDS ORDERED: IBUPROFEN600 MG PO (16:24)
[2019-11-21] MEDS ORDERED: NICOTINE PATCH1 EAC1 TD (16:24)
[2019-11-21] MEDS ORDERED: TYLENOL EXTRA500 MG PO (16:25)
[2019-11-21] MEDS ORDERED: NORCO 5-325 TA1 EACH PO (16:26)
--- NOTE | 2019-11-21 16:38 | HP ---
[facility] [address], [place] [address] Signed ADMISSION DATE: 11/20/2019 TIME: 10:45 p.m. PROBLEM: Abdominal pain, possible appendicitis. HISTORY OF PRESENT ILLNESS: This 49-year-old white woman presented to the emergency room where she was evaluated by Dr. Hughes with vague central abdominal pain. Patient's pain began on Thursday (today is Thursday). She had vague upper abdominal pain, which she thought may be related to constipation. On Thursday, she took antacids and ultimately, a cathartic which allowed for bowel movement and improved her symptoms somewhat. By the day of her symptoms persisted, however, and she presented to the emergency room where she was evaluated by Dr. Hughes. She was found to have a white count elevation of 14.4 with hematocrit of 40.3 and platelets of 207,000. Chem profile which showed a low potassium of 2.9 with a sodium of 129, glucose of 133. Liver enzymes normal. Her beta-hCG was negative. COVID testing has been undertaken, but she has not had any exposure to COVID that she is aware of nor any upper respiratory or febrile symptoms. Her urinalysis was found to be essentially normal with a specific gravity of only 1.003, however, and RBCs in the urine of 5. A CT scan of the abdomen was obtained, which showed fecalith within the appendix, some fluid within the appendix and some periappendiceal fluid. There may be air bubble outside the appendix, so there was no sign of well-formed abscess. Multiple opacities are noted in the cecum on my review of the study. The upper structures including liver, gallbladder, and pancreas all appear normal. There was a left renal cyst. Pelvic structures appeared normal. There was no sign of free fluid in the pelvis. PAST MEDICAL HISTORY: Negative for any abdominal operations in the past. She denies any ongoing chronic medical conditions. She does smoke. SOCIAL HISTORY: She is unmarried. She has 3 children. The youngest is a son. She travels between [place] and [place]. She takes care of her aging and ailing mother in [place] and stays with her much of the time. Her mother is now being watched after by her brother. REVIEW OF SYSTEMS: She denies any shortness of breath or chest pain. She has had no dysphagia or dysuria. Denies any hematemesis or blood per rectum. Electronically Signed By: MK VARGAS MD 11/21/19 1638 PATIENT NAME: KECIA RO HISTORY AND PHYSICAL DATE OF : 70 REPORT #: [id number] PHYSICIAN: MK VARGAS MD PCP: NO PRIMARY CARE PHYSICIAN REPORT IS CONFIDENTIAL AND NOT TO BE RELEASED WITHOUT AUTHORIZATION [facility] [address] [place], [place] [address] Signed Her last menstrual period was in the past several days. PHYSICAL EXAMINATION: GENERAL: This is somewhat obese white woman, who looks to be comfortable. VITAL SIGNS: Her temperature is a 100.2 initially, pulse 105, respirations 20, blood pressure 114/50, bedside pulse oximetry is 96%. HEENT: Mucous membranes are dry. Trachea is midline. CHEST: Shows normal respiratory excursion. She has no wheeze or rhonchi. HEART: Regular without murmur. ABDOMEN: Obese. She points to the periumbilical area as her area of complaints of pain. Rovsing sign is negative. She has scant tenderness in McBurney's point. There is some tenderness cephalad to this. EXTREMITIES: Show no clubbing, cyanosis, or edema. LAB STUDIES: As previously described, notably, white count of 14.4, potassium of 2.9, sodium of 129, normal urinalysis and COVID screening test pending administration. The CT scan was as described. ASSESSMENT: Most likely, she does have appendicitis, though her clinical exam is not entirely consistent with it at this point. I have recommended admission to the hospital fluid resuscitation, electrolyte repletion, broad-spectrum antibiotics and re-examination. She ultimately will likely require appendectomy preferably by laparoscopic approach. It is less likely this represents a cholecystitis problem or other inflammatory condition but it is still possible. MD CORTNEY Steen/SIMBAL /[id number] cc: John Hughes MD Electronically Signed By: MK VARGAS MD 11/21/19 1638 PATIENT NAME: KECIA RO HISTORY AND PHYSICAL DATE OF : 70 REPORT #: [id number] PHYSICIAN: MK VARGAS MD PCP: NO PRIMARY CARE PHYSICIAN REPORT IS CONFIDENTIAL AND NOT TO BE RELEASED WITHOUT AUTHORIZATION [address] [address] Signed Copies: JOHN HUGHES MD ~ Electronically Signed By: MK VARGAS MD 11/21/19 1638 PATIENT NAME: KECIA RO HISTORY AND PHYSICAL DATE OF : 70 REPORT #: [id number] PHYSICIAN: MK VARGAS MD PCP: NO PRIMARY CARE PHYSICIAN REPORT IS CONFIDENTIAL AND NOT TO BE RELEASED WITHOUT AUTHORIZATION
--- NOTE | 2019-11-21 17:16 | NUR ---
PATIENT GETTING READY TO DISCHARGE. LAST SET OF VITALS OBTAINED BEFORE DISCHARGE.
--- NOTE | 2019-11-21 17:20 | NUR ---
IV TAKEN OUT UPON RN REQUEST. CATH INTACT AND LOOKED GOOD, RN NOTIFIED.
--- NOTE | 2019-11-21 17:25 | NUR ---
DISCHARGE INSTRUCTIONS GIVEN TO PATIENT, VERBALIZES UNDERSTANDING OF MEDICATIONS, FOLLOW UP APPOINTMENT, SX TO REPORT. DENIES ANY QUESTIONS OR CONCERNS. FRIEND HERE TO GIVE RIDE HOME.
== END 2019-11-21 17:30 | disposition home or self-care (01) | DRG 340 ==
LOC: ED 19:29 → MS 22:46
PROVIDERS: ADMIT Surgery
PROC: 0DTJ4ZZ Resection of Appendix, Percutaneous Endoscopic Approach (ICD-10-PCS; principal; 2019-11-21 13:00)
DX: K35.32 Acute appendicitis with perforation, localized peritonitis, and gangrene, without abscess (principal); F17.200 Nicotine dependence, unspecified, uncomplicated; E66.9 Obesity, unspecified; Z68.25 Body mass index [BMI] 25.0-25.9, adult
CPT/HCPCS: 00840; 36415; 74177; 80048; 80053; 81001; 83605; 83690; 84703; 85025; 96361; 96374; 96375; 99285-25; J0330; J1100; J1170; J1644; J1885; J2001; J2185; J2405; J2704; J3010; J3480; J7030; J7121; Q9967